=== PATIENT | female | born 1970 | race Caucasian/White ===

== ENCOUNTER → 2022-08-25 12:34 | Outpatient (CLI) | payer OTHER, SELFPAY ==
--- NOTE | ~2022-08-25 | XR_ITS ---
XR foot LT min 3V DATE: 08/25/2022 12:59 INDICATION: Left foot bunion TECHNIQUE: 4 weightbearing views COMPARISON: None FINDINGS: Pes planus. Mild posterior and mild to moderate plantar calcaneal enthesopathy without associated erosive change or periostitis. Hallux valgus and bunion deformity. Moderately prominent osteoarthritis at the first metatarsophalangeal joint No fracture or dislocation, periosteal reaction or bone destruction. IMPRESSION: Hallux valgus and bunion deformity Osteoarthritic the first metatarsophalangeal joint Plantar and posterior calcaneal enthesopathy Reviewed, dictated and finalized at location [facility]. REPAIRER
== END ==
PROVIDERS: PCP Podiatrist Foot & Ankle Surgery; Visit Provider Podiatrist Foot & Ankle Surgery
DX: M21.612 Bunion of left foot (principal); M20.12 Hallux valgus (acquired), left foot; M19.072 Primary osteoarthritis, left ankle and foot; M77.32 Calcaneal spur, left foot
CPT/HCPCS: 73630

== ENCOUNTER 2023-08-05 15:23 | Outpatient (CLI) | payer OTHER, SELFPAY ==
--- NOTE | 2023-08-05 15:39 | ECG_ITS ---
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
== END 2023-08-05 15:24 | disposition home or self-care (01) ==
PROVIDERS: PCP Physician Assistant Medical; Visit Provider Orthopaedic Surgery
DX: Z01.818 Encounter for other preprocedural examination (principal); Z87.891 Personal history of nicotine dependence; R93.1 Abnormal findings on diagnostic imaging of heart and coronary circulation
CPT/HCPCS: 93005

== ENCOUNTER 2023-08-17 00:15 | Day surgery (SDC) | payer OTHER, SELFPAY ==
[2023-08-04 12:58] VITALS: BMI 35.5
--- NOTE | 2023-08-04 13:03 | PC.NURSE ---
Report to the Outpatient Waiting Room, entrance under the green pavilion located off [facility], at time 6:00 on date 08/17/23. Planned Procedure Time: 7:30. Time changes happen often and if your time is changed the preop area will call you the afternoon before. - You and your visitor will be asked to self-screen and do not enter if you have any COVID symptoms. - A mask is optional within the hospital at this time. Patients may have clear liquids (water, carbonated beverages, clear teas, apple juice) until 3 hours prior to surgery with a maximum of 20 ounces. - No food from midnight until time of surgery Take the following medications with a SIP of water the morning of surgery: NONE DO NOT STOP ANY OF YOUR OTHER PRESCRIPTION MEDICATIONS PRIOR TO SURGERY ?EXCEPT THE FOLLOWING Medications to discontinue per physician: VITAMINS/SUPPLEMENTS Date to take last dose: 08/13/23 Please no make-up, nail prydeinig, hairspray, perfume, deodorant, or body powder the day of surgery. No jewelry (including any body piercings) or valuables the day of surgery, leave them at home. Please take a shower or bath the night before, or the morning of, surgery with an antibacterial soap. Wear comfortable, loose fitting clothing. - Jewelry must be removed prior to entering the operating room. Rings and piercings that are not removed may be cut off. - The hospital will not accept responsibility for valuables. - Please leave all valuables, including medications, at home the day of surgery. If you are going home after surgery, a licensed dedicated truck driver must drive you home. - NO public transportation without another adult if you receive anesthesia. - We recommend that an adult stay with you for 24 hours following discharge. - We also recommend that you do not drive, make important decision, drink alcoholic beverages, or take any drugs that were not prescribed by your health care provider for at least 24 hours after your discharge time. Follow any additional instructions given to you from your surgeon. If you or anyone in your household have experienced Covid symptoms in the past week, please notify your surgeon or the nurse liaison at the phone number below for possible testing. Telephone instructions given to SUPA SCHULZ and asked if any additional questions and then verbalized understanding. Patient advised to call surgeon office or pre surgery nurse liaison [phone] if any additional questions.
--- NOTE | 2023-08-12 14:02 | PM.IMHP ---
H&P: HPI History of Present Illness Date/Time: 08/12/23 14:02 Chief Complaint: Left foot pain and deformity Narrative: 53-year-old woman with several year history of left foot pain and progressive deformity. Pain with daily activity and weight bear. Worse with shoe wear. Has failed bracing, strapping and spacers. Has tried custom inserts and accommodative shoes. Review of Systems Constitutional: Constitutional: Denies fever(s) Eyes: Eyes: Denies blurry vision ENT: Reports Normal hearing present Cardiovascular: Cardiovascular: Denies chest pain and Denies dyspnea Respiratory: Respiratory: Denies dyspnea and Denies wheezing Gastrointestinal: Gastrointestinal: Denies abdominal pain Genitourinary: Genitourinary: Denies urinary urgency Musculoskeletal: Musculoskeletal: Reports as per HPI and Denies numbness Integumentary/Breasts: Skin/Breast: Denies changing lesions and Denies sores Neurologic: Reports Normal hearing present, Denies behavioral changes, Denies confusion, Denies numbness and Denies convulsions Psychiatric: Psychiatric: Denies behavioral changes, Denies confusion and Denies hallucinations Endocrine: Endocrine: Denies heat intolerance Hematologic/Lymphatic: Hematologic/Lymphatic: Denies easy bleeding Allergic/Immunologic: Allergic/Immunologic: Denies wheezing PMFSH Past Medical History Medical History (Updated 08/12/23 @ 14:05 by Mike Evans MD) Acquired hallux valgus of left foot Appendicitis Joseph's cyst of knee Cancer determined by ovarian biopsy Hammertoe of second toe of left foot Left knee pain 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 Surgical History Surgical History History of appendectomy 1991 Family History Family History Sibling Cervical cancer Other Arthritis Social History Social History Smoking packs per day: 1 Smoking cigarettes per day: 20.0 Years smoked: 20 Smoking pack-years: 20.00 Smoking status: Former smoker Tobacco type: cigarettes Second hand tobacco smoke exposure: Yes Smoking end date: 08/10/09 Alcohol intake: current Alcohol use details: 2/MONTH Substance use: never Substance use type: does not use Living arrangements: alone Occupation/Education: occupation Gender identity (if verbalized by the patient): Female Spiritual care concerns: No Meds Home Medications and Allergies Home Medications Medication Instructions Recorded Confirmed Type antiarthritic combination no.2 900 See Rx Instructions PO .qd 04/09/22 08/04/23 History mg tablet (glucosamine-chondroitin) ascorbic acid (vitamin C) 1,000 mg 1 g PO DAILY 04/09/22 08/04/23 History capsule mecobalamin (vitamin B12) 5,000 5,000 mcg PO .qd 04/09/22 08/04/23 History mcg disintegrating tablet Allergies Allergy/AdvReac Type Severity Reaction Status Date / Time Tetanus Vaccines and Toxoid Allergy Unknown ANAPHYLAXIS Verified 08/04/23 12:57 amoxicillin Allergy Rash Verified 08/04/23 12:57 Exam Const: General: healthy appearing; No in distress or confusion Orientation/consciousness: oriented to person, oriented to place, oriented to time and No confusion HENMT: Head: normal to inspection, normocephalic and atraumatic Eyes: Conjunctivae: conjunctivae normal Sclera: sclerae normal Neck: Neck: supple and nontender Resp: Effort & Inspection: normal respiratory effort and no audible wheezes Cardio: Rhythm: regular rhythm Skin: General skin exam: no rashes or lesions noted Neuro: General: oriented to person, oriented to place, oriented to time and No confusion Extrem: Right upper extremity: normal to inspection Left upper extremity: normal to inspection Right lower extremity: ankle Details: normal to inspection, normal ROM ( dorsiflexion 5?, plantar flexion
--- NOTE | 2023-08-14 15:31 | WPDANESEPPF ---
Anes - Initial Pre Proc Eval Procedure: Operation Date: 08/17/23 07:30 Proposed Procedures p Left Hallux Valgus Correction with First Metatarsal Osteotomy, Possible Phalangeal Osteotomy, Second Crossover Toe Correction - Mike Evans MD Date/Time: 08/14/23 15:31 Surgeon: Mike Evans MD Pre Op Diagnosis: Left Hallux Valgus ,2nd crossover toe Patient Data Age: 53 Gender: F Height: 1.68 m Weight: 99.8 kg Allergies Allergy/AdvReac Type Severity Reaction Status Date / Time Tetanus Vaccines and Toxoid Allergy Unknown ANAPHYLAXIS Verified 08/04/23 12:57 amoxicillin Allergy Rash Verified 08/04/23 12:57 Home Medications Medication Instructions Recorded Confirmed Type antiarthritic combination no.2 900 See Rx Instructions PO .qd 04/09/22 08/04/23 History mg tablet (glucosamine-chondroitin) ascorbic acid (vitamin C) 1,000 mg 1 g PO DAILY 04/09/22 08/04/23 History capsule mecobalamin (vitamin B12) 5,000 5,000 mcg PO .qd 04/09/22 08/04/23 History mcg disintegrating tablet Patient hx anesthesia problems: none Family hx anesthesia problems: none Results Review: All pre-operative results and documents have been reviewed as part of the pre-operative evaluation. 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 Surgical History Surgical History History of appendectomy 1991 Family History Family History Sibling Cervical cancer Other Arthritis Social History Social History Smoking packs per day: 1 Smoking cigarettes per day: 20.0 Years smoked: 20 Smoking pack-years: 20.00 Smoking status: Former smoker Tobacco type: cigarettes Second hand tobacco smoke exposure: Yes Smoking end date: 08/10/09 Alcohol intake: current Alcohol use details: 2/MONTH Substance use: never Substance use type: does not use Living arrangements: alone Occupation/Education: occupation Gender identity (if verbalized by the patient): Female Spiritual care concerns: No Anes - Eval Final PreProcedure Day of Procedure 08/14/23 15:31 Patient weight: normal Heart: regular rate and rhythm Lungs: clear to auscultation Neurological: alert and oriented Last oral intake: >/= 8 hours ASA classification: II Emergent: no Anesthetic plan: proceed Anesthesia type and monitoring: general LMA and standard monitoring Results Review: All pre-operative results and documents have been reviewed as part of the pre-operative evaluation. Informed Consent: The patient's anesthetic plan and its attendant risks and benefits were discussed with the patient/family/POA. Questions were solicited and answers provided to the satisfaction of the patient/family/POA.
[2023-08-17] VITALS (7 sets, daily range): BP systolic 105–150; BP diastolic 40–77; PULSE 46–65; RESP 10–16; TEMP 36–36.2; O2SAT 95–100
--- NOTE | ~2023-08-17 | XR_ITS ---
XR surgery orthopedic DATE: 08/17/2023 09:13 INDICATION: Left hallux valgus correction TECHNIQUE: 6 seconds total exposure time 0.4870 cGycm2 COMPARISON: None FINDINGS: Status post osteotomy at the distal first metatarsal bone and osteotomy and staple line at the proximal phalanx of the first digit. Status post surgical fusion at the interphalangeal joint of the second digit. IMPRESSION: Status post bunionectomy and fusion at second proximal interphalangeal joint Reviewed, dictated and finalized at Location [facility]. Reviewed, dictated and finalized at location B. R SANDER IMPRESSION: Status post bunionectomy and fusion at second proximal interphalang eal joint
[2023-08-17] MEDS: ACETAMINOPHEN 500 MG TABLET 1000 MG PO (06:56)
[2023-08-17] MEDS: LACTATED RINGERS 1,000 ML 30 ML IV CONT ×2 (07:03→09:05)
--- NOTE | 2023-08-17 07:09 | WPDHPUPDATE1 ---
History and Physical Update Update Date/Time: 08/17/23 07:09 History and Physical has been reviewed, including an updated exam of the patient. There are NO changes in the patient's condition. Risks, benefits, and alternatives have been discussed and questions answered. Patient agrees to proceed with procedure.
[2023-08-17] MEDS: KETOROLAC 15 MG/ML VIAL (*BKC) IV PUSH (07:17)
[2023-08-17] MEDS: ceFAZolin 2 GM/D5W 50 ML 2 GM/50 ML BAG IVPB (07:24)
[2023-08-17] MEDS: BUPivacaine HCL 0.5% 10 ML AMP 20 ML INFILTRATE (07:53)
--- NOTE | 2023-08-17 09:21 | W.PM.PROC2 ---
Procedure Note - Detailed Date of Procedure 08/17/23 Pre-op Diagnosis Left Hallux Valgus ,2nd crossover toe Post-op Diagnosis Same Procedure Performed Left hallux valgus correction with metatarsal and phalangeal osteotomy, hammertoe correction proximal interphalangeal arthrodesis Surgeon Mike Evans MD Paper Sales Manager [facility] assistant director Anesthesia General Indications 53-year-old woman with moderate hallux valgus deformity and 2nd hammertoe. Has failed conservative treatment strapping, bracing, inserts. Pain with daily activity and presents for operative treatment. Description of Procedure After informed consent was given, the operative extremity was marked in the preoperative holding area. The patient received intravenous antibiotics. The patient was brought to the operating room where they underwent a general anesthetic by the anesthesia team. The patient was positioned supine on the operating room table. A time-out was performed confirming the patient, site of the surgery, and the plan for surgery. The left lower extremity was then prepped and draped in the usual sterile surgical fashion using ChloraPrep skin solution. Foot and ankle were exsanguinated and a calf tourniquet was inflated to 225 mmHg pressure. A longitudinal incision was then made along the medial border of the 1st ray centered over the medial eminence with a #15 blade knife. Hemostasis was controlled with electric cautery. The dorsal and plantar sensory nerves were identified and retracted bluntly. A medial capsulotomy was then performed. This was reflected off the medial eminence. The joint was inspected for evaluation of degenerative changes. A lateral release was then performed through the joint with a #15 blade knife. The medial eminence was then resected with a sagittal saw in line with the medial border of the foot. Correction of the deformity was performed with a chevron-shaped osteotomy performed with sagittal saw from medial to lateral through the distal portion of the 1st metatarsal. The lateral portion of the bone cut was completed with an osteotome to protect the soft tissue. The capital fragment was then translated laterally and impacted on to the 1st metatarsal shaft. Lateral translation and impaction corrected both hallux valgus deformity and correction of the distal metatarsal articular angle. Temporary fixation was performed and alignment was verified with image intensification. Hallux valgus angle correction, intermetatarsal angle correction and distal metatarsal articular angle were verified. Fixation was achieved with 2.0 millimeter bioabsorbable pins. Two pins were utilized. Image intensification confirmed final alignment. Rotation was verified visually. The wound was then thoroughly irrigated with antibiotic solution. The capsule was repaired through a drill hole in the distal 1st metatarsal with 0 Vicryl interrupted suture. The dorsal limb of the capsule was repaired with 00 Vicryl interrupted suture. Subcutaneous tissue was repaired with 000 Monocryl interrupted suture and the skin approximated with 0000 nylon running suture. Local anesthetic with 0.5% Marcaine plain was injected in the soft tissue. Clinically and fluoroscopically there was still hallux valgus interphalangeus present. Proximal phalanx osteotomy was indicated. Medial incision made along the proximal phalanx with 15 blade knife. Hemostasis controlled electrocautery. Dissection down to the medial aspect of the proximal phalanx. Retractors placed. Sagittal saw used to make a medial closing wedge osteotomy transversely across the proximal phalanx. Image intensification confirmed placement of the osteotomy. Fixation was achieved with the Arthrex 10 millimeter x 9 millimeter staple. Good stability and fixation were noted. Image intensification confirmed final alignment of the osteotomy and placement of the hardware. Overall alignment of the 1st ray was verified. Wound was thoroughly irrigated with
[2023-08-17] MEDS: fentaNYL CITRATE INJ (*CRX) 100 MCG/2 ML VIAL 25 MCG IV PUSH (09:48)
[2023-08-17 10:33] LABS: HIV 1/2 Ab P24 Ag Result Negative (Negative); Hepatitis B Surface Anti Res Negative; Hepatitis C Virus Antibody Negative (Negative)
== END 2023-08-17 11:09 | disposition home or self-care (01) ==
PROVIDERS: PCP Physician Assistant Medical; Visit Provider Orthopaedic Surgery
PROC: (CPT 28299; principal; 2023-08-17 07:30)
DX: M20.12 Hallux valgus (acquired), left foot (principal); Z98.890 Other specified postprocedural states; Z87.891 Personal history of nicotine dependence; Z85.43 Personal history of malignant neoplasm of ovary; Z80.49 Family history of malignant neoplasm of other genital organs; Z11.4 Encounter for screening for human immunodeficiency virus [HIV]
CPT/HCPCS: 28299; 28285; 36415; 86703; 86706; 86803; 93005; 99199; A9270; C1713; G0432; J0690; J1100; J1885; J2250; J2405; J2704; J3010; J7120

== ENCOUNTER → 2023-08-21 15:14 | Outpatient (CLI) | payer OTHER, SELFPAY ==
--- NOTE | ~2023-08-21 | MM_ITS ---
EXAMINATION: MM screening joe BI w seth HISTORY: Screening TECHNIQUE: Craniocaudal and mediolateral oblique 3-D tomosynthesis images were obtained and synthetic 2-D images were generated. CAD analysis was submitted and interpreted. COMPARISON: No prior mammogram is available for comparison at this institution. BREAST PARENCHYMAL COMPOSITION: The breasts are almost entirely fatty. FINDINGS: There is a focal asymmetry in the lower inner quadrant of the left breast, middle third. Th ere is no mammographic evidence for malignancy in the right breast. IMPRESSION: 1. Focal left breast asymmetry, lower inner quadrant, middle third. 2. Additional mammographic views and possible breast ultrasound are recommended. BI-RADS Category 0: Incomplete: Needs additional imaging evaluation. Reviewed, dictated and finalized at location A. PSYCHIATRY IMPRESSION: 1. Focal left breast asymmetry, lower inner quadrant, middle third. 2. Additional mammographic views and possible breast ultrasound are recommended . BI-RADS Category 0: Incomplete: Needs additional imaging evaluation.
== END ==
PROVIDERS: PCP Physician Assistant Medical; Visit Provider Nurse Practitioner Obstetrics & Gynecology
DX: Z12.31 Encounter for screening mammogram for malignant neoplasm of breast (principal); R92.8 Other abnormal and inconclusive findings on diagnostic imaging of breast
CPT/HCPCS: 77063; 77067

== ENCOUNTER 2023-11-09 00:07 | Day surgery (SDC) | payer OTHER, SELFPAY ==
[2023-10-30 14:54] VITALS: BMI 35.5
--- NOTE | 2023-10-30 14:55 | PC.NURSE ---
Report to the Outpatient Waiting Room, entrance under the green pavilion located off [facility], at time 0600 on date 11/09/23. Planned Procedure Time: 0730. Time changes happen often and if your time is changed the preop area will call you the afternoon before. - You and your visitor will be asked to self-screen and do not enter if you have any COVID symptoms. - A mask is optional within the hospital at this time. Patients may have clear liquids (water, carbonated beverages, clear teas, apple juice) until 3 hours prior to surgery with a maximum of 20 ounces. - No food from midnight until time of surgery Take the following medications with a SIP of water the morning of surgery: NONE DO NOT STOP ANY OF YOUR OTHER PRESCRIPTION MEDICATIONS PRIOR TO SURGERY ?EXCEPT THE FOLLOWING Medications to discontinue per physician: VITAMINS/SUPPLEMENTS Date to take last dose: 11/05/23 Please no make-up, nail malawian, hairspray, perfume, deodorant, or body powder the day of surgery. No jewelry (including any body piercings) or valuables the day of surgery, leave them at home. Please take a shower or bath the night before, or the morning of, surgery with an antibacterial soap. Wear comfortable, loose fitting clothing. - Jewelry must be removed prior to entering the operating room. Rings and piercings that are not removed may be cut off. - The hospital will not accept responsibility for valuables. - Please leave all valuables, including medications, at home the day of surgery. If you are going home after surgery, a licensed cab driver must drive you home. - NO public transportation without another adult if you receive anesthesia. - We recommend that an adult stay with you for 24 hours following discharge. - We also recommend that you do not drive, make important decision, drink alcoholic beverages, or take any drugs that were not prescribed by your health care provider for at least 24 hours after your discharge time. Follow any additional instructions given to you from your surgeon. If you or anyone in your household have experienced Covid symptoms in the past week, please notify your surgeon or the nurse liaison at the phone number below for possible testing. Telephone instructions given to SUPA MAHER and asked if any additional questions and then verbalized understanding. Patient advised to call surgeon office or pre surgery nurse liaison [phone] if any additional questions.
--- NOTE | 2023-11-06 11:01 | PM.IMHP ---
H&P: HPI History of Present Illness Date/Time: 11/06/23 11:01 Chief Complaint: right foot pain with hallux deformity Narrative: 53-year-old with right hallux valgus deformity. Pain with activity and shoe wear. Unrelieved with conservative measures. Affects daily activity and routine. Review of Systems Constitutional: Constitutional: Denies fever(s) Eyes: Eyes: Denies blurry vision ENT: Reports Normal hearing present Cardiovascular: Cardiovascular: Denies chest pain and Denies dyspnea Respiratory: Respiratory: Denies dyspnea and Denies wheezing Gastrointestinal: Gastrointestinal: Denies abdominal pain Genitourinary: Genitourinary: Denies urinary urgency Musculoskeletal: Musculoskeletal: Reports as per HPI and Denies numbness Integumentary/Breasts: Skin/Breast: Denies changing lesions and Denies sores Neurologic: Reports Normal hearing present, Denies behavioral changes, Denies confusion, Denies numbness and Denies convulsions Psychiatric: Psychiatric: Denies behavioral changes, Denies confusion and Denies hallucinations Endocrine: Endocrine: Denies heat intolerance Hematologic/Lymphatic: Hematologic/Lymphatic: Denies easy bleeding Allergic/Immunologic: Allergic/Immunologic: Denies wheezing PMFSH Past Medical History Medical History Acquired hallux valgus of left foot Appendicitis Joseph's cyst of knee Cancer determined by ovarian biopsy Encounter for postoperative care Hallux valgus (acquired), right foot Hammertoe of second toe of left foot Left knee pain 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 Surgical History Surgical History History of appendectomy 1991 Family History Family History Sibling Cervical cancer Other Arthritis Social History Social History Smoking packs per day: 1 Smoking cigarettes per day: 20.0 Years smoked: 20 Smoking pack-years: 20.00 Smoking status: Former smoker Tobacco type: cigarettes Second hand tobacco smoke exposure: Yes Smoking end date: 08/10/09 Alcohol intake: current Alcohol use details: 2/MONTH Substance use: never Substance use type: does not use Living arrangements: alone Occupation/Education: occupation Gender identity (if verbalized by the patient): Female Spiritual care concerns: No Meds Home Medications and Allergies Home Medications Medication Instructions Recorded Confirmed Type antiarthritic combination no.2 900 See Rx Instructions PO .qd 04/09/22 10/30/23 History mg tablet (glucosamine-chondroitin) ascorbic acid (vitamin C) 1,000 mg 1 g PO DAILY 04/09/22 10/30/23 History capsule mecobalamin (vitamin B12) 5,000 5,000 mcg PO .qd 04/09/22 10/30/23 History mcg disintegrating tablet Allergies Allergy/AdvReac Type Severity Reaction Status Date / Time Tetanus Vaccines and Toxoid Allergy Unknown ANAPHYLAXIS Verified 11/04/23 16:17 amoxicillin Allergy Rash Verified 11/04/23 16:17 Exam Const: General: healthy appearing; No in distress or confusion Orientation/consciousness: oriented to person, oriented to place, oriented to time and No confusion HENMT: Head: normal to inspection, normocephalic and atraumatic Eyes: Conjunctivae: conjunctivae normal Sclera: sclerae normal Neck: Neck: supple and nontender Resp: Effort & Inspection: normal respiratory effort and no audible wheezes Cardio: Rhythm: regular rhythm Skin: General skin exam: no rashes or lesions noted Neuro: General: oriented to person, oriented to place, oriented to time and No confusion Extrem: Right upper extremity: normal to inspection Left upper extremity: normal to inspection Right lower extremity: ankle Details: normal to inspection, normal ROM ( dorsiflexion 5?, plantar flexion 45?, inv
[2023-11-09] VITALS (7 sets, daily range): BP systolic 109–144; BP diastolic 58–104; PULSE 47–61; RESP 10–16; TEMP 36.3–36.7; O2SAT 95–100
--- NOTE | ~2023-11-09 | XR_ITS ---
XR surgery orthopedic DATE: 11/09/2023 08:53 INDICATION: Orthopedic surgery TECHNIQUE: 3 spot C-arm images 4. Seconds total exposure time 0.3146 cGycm2 total DAP COMPARISON: None FINDINGS: Status post first metatarsal bunionectomy. Status post transverse osteotomy of the metaphys eal area of the proximal phalanx, with medial staple bridging the osteotomy site. IMPRESSION: First digit proximal phalanx osteotomy Status post bunionectomy at first metatarsal Reviewed, dictated and finalized at [facility]. Reviewed, dictated and finalized at [facility].
--- NOTE | 2023-11-09 06:27 | P.PNAN_ITS ---
Anes - Initial Pre Proc Eval Procedure: Operation Date: 11/09/23 07:30 Proposed Procedures p Right Hallux Valgus Correction with - Mike Evans MD s First Metatarsal Osteotomy and Phalangeal Osteotomy - Mike Evans MD Date/Time: 11/09/23 06:27 Surgeon: Mike Evans MD Pre Op Diagnosis: Rt Hallux Valgus Patient Data Age: 53 Gender: F Height: 1.68 m Weight: 99.9 kg Allergies Allergy/AdvReac Type Severity Reaction Status Date / Time Tetanus Vaccines and Toxoid Allergy Unknown ANAPHYLAXIS Verified 11/04/23 16:17 amoxicillin Allergy Rash Verified 11/04/23 16:17 Home Medications Medication Instructions Recorded Confirmed Type antiarthritic combination no.2 900 See Rx Instructions PO .qd 04/09/22 10/30/23 History mg tablet (glucosamine-chondroitin) ascorbic acid (vitamin C) 1,000 mg 1 g PO DAILY 04/09/22 10/30/23 History capsule mecobalamin (vitamin B12) 5,000 5,000 mcg PO .qd 04/09/22 10/30/23 History mcg disintegrating tablet Patient hx anesthesia problems: none Family hx anesthesia problems: none Results Review: All pre-operative results and documents have been reviewed as part of the pre- operative evaluation. 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 Surgical History Surgical History History of appendectomy 1991 Family History Family History Sibling Cervical cancer Other Arthritis Social History Social History Smoking packs per day: 1 Smoking cigarettes per day: 20.0 Years smoked: 20 Smoking pack-years: 20.00 Smoking status: Former smoker Tobacco type: cigarettes Second hand tobacco smoke exposure: Yes Smoking end date: 08/10/09 Alcohol intake: current Alcohol use details: 2/MONTH Substance use: never Substance use type: does not use Living arrangements: alone Occupation/Education: occupation Gender identity (if verbalized by the patient): Female Spiritual care concerns: No Anes - Eval Final PreProcedure Day of Procedure 11/09/23 06:27 Patient weight: obese Heart: regular rate and rhythm Lungs: clear to auscultation Airway: Mallampati scale class II Neurological: alert and oriented Last oral intake: >/= 8 hours ASA classification: II Emergent: no Anesthetic plan: proceed Anesthesia type and monitoring: general LMA and standard monitoring Results Review: All pre-operative results and documents have been reviewed as part of the pre- operative evaluation. Informed Consent: The patient's anesthetic plan and its attendant risks and benefits were discussed with the patient/family/POA. Questions were solicited and answers provided to the satisfaction of the patient/family/POA.
[2023-11-09] MEDS: KETOROLAC 15 MG/ML VIAL (*BKC) IV PUSH (06:45)
[2023-11-09] MEDS: ACETAMINOPHEN 500 MG TABLET 1000 MG PO (06:45)
[2023-11-09] MEDS: LACTATED RINGERS 1,000 ML 30 ML IV CONT ×2 (06:45→08:56)
--- NOTE | 2023-11-09 07:11 | WPDHPUPDATE1 ---
History and Physical Update Update Date/Time: 11/09/23 07:11 History and Physical has been reviewed, including an updated exam of the patient. There are NO changes in the patient's condition. Risks, benefits, and alternatives have been discussed and questions answered. Patient agrees to proceed with procedure.
[2023-11-09] MEDS: ceFAZolin 2 GM/D5W 50 ML 2 GM/50 ML BAG IVPB (07:41)
[2023-11-09] MEDS: BUPivacaine HCL 0.5% 10 ML AMP 30 ML INFILTRATE (07:57)
--- NOTE | 2023-11-09 09:09 | W.PM.PROC2 ---
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 Presents for operative treatment. Description of Procedure After informed consent was given, the operative extremity was marked in the preoperative holding area. The patient received intravenous antibiotics. The patient was brought to the operating room where they underwent a general anesthetic by the anesthesia team. The patient was positioned supine on the operating room table. A time-out was performed confirming the patient, site of the surgery, and the plan for surgery. The right lower extremity was then prepped and draped in the usual sterile surgical fashion using ChloraPrep skin solution. Foot and ankle were exsanguinated and a calf tourniquet was inflated to 225 mmHg pressure. A longitudinal incision was then made along the medial border of the 1st ray centered over the medial eminence with a #15 blade knife. The previous incision was utilized. Hemostasis was controlled with electric cautery. The dorsal and plantar sensory nerves were identified and retracted bluntly. A medial capsulotomy was then performed. This was reflected off the medial eminence. The joint was inspected for evaluation of degenerative changes. A lateral release was then performed through the joint with a #15 blade knife. The medial eminence was then resected with a sagittal saw in line with the medial border of the foot. Correction of the deformity was performed with a chevron-shaped osteotomy performed with sagittal saw from medial to lateral through the distal portion of the 1st metatarsal. The lateral portion of the bone cut was completed with an osteotome to protect the soft tissue. The capital fragment was then translated laterally and impacted on to the 1st metatarsal shaft. Lateral translation and impaction corrected both hallux valgus deformity and correction of the distal metatarsal articular angle. Temporary fixation was performed and alignment was verified with image intensification. Hallux valgus angle correction, intermetatarsal angle correction and distal metatarsal articular angle were verified. Fixation was achieved with 2.0 millimeter bioabsorbable pins. Two pins were utilized. Image intensification confirmed final alignment. Rotation was verified visually. The wound was then thoroughly irrigated with antibiotic solution. The capsule was repaired through a drill hole in the distal 1st metatarsal with 0 Vicryl interrupted suture. The dorsal limb of the capsule was repaired with 00 Vicryl interrupted suture. Subcutaneous tissue was repaired with 000 Monocryl interrupted suture and the skin approximated with 0000 nylon running suture. Local anesthetic with 0.5% Marcaine plain was injected in the soft tissue. Clinically and fluoroscopically there was still hallux valgus interphalangeus present. Proximal phalanx osteotomy was indicated. Medial incision made along the proximal phalanx with 15 blade knife. Hemostasis controlled electrocautery. Dissection down to the medial aspect of the proximal phalanx. Retractors placed. Sagittal saw used to make a medial closing wedge osteotomy transversely across the proximal phalanx. Image intensification confirmed placement of the osteotomy. Fixation was achieved with the Arthrex 10 millimeter x 9 millimeter staple. Good stability and fixation were noted. Image intensification confirmed final alignment of the osteotomy and placement of the hardware. Overall alignment of the 1st ray was verified. Wound was thoroughly irrigated with antibiotic solution. Soft tissue closed with 000 Monocryl interrupted suture. Skin approximately 4 O nylon running suture. Sterile dressing was then applied.
[2023-11-09] MEDS: fentaNYL CITRATE INJ (*CRX) 100 MCG/2 ML VIAL 25 MCG IV PUSH ×2 (09:14→09:26)
--- NOTE | 2023-11-09 11:03 | SUR.PHASEII ---
Patient has a post-op shoe from when she had left foot operated on. So this RN did not order her a new one for this surgery.
== END 2023-11-09 10:44 | disposition home or self-care (01) ==
PROVIDERS: PCP Physician Assistant Medical; Visit Provider Orthopaedic Surgery
PROC: (CPT 28299; principal; 2023-11-09 07:30)
PROC: (CPT 28750; 2023-11-09 07:30)
DX: M20.11 Hallux valgus (acquired), right foot (principal); E66.9 Obesity, unspecified; Z68.36 Body mass index [BMI] 36.0-36.9, adult; Z87.891 Personal history of nicotine dependence; Z85.43 Personal history of malignant neoplasm of ovary; Z80.49 Family history of malignant neoplasm of other genital organs
CPT/HCPCS: 28299; 99199; A9270; C1713; J0690; J1100; J1885; J2250; J2405; J2704; J3010; J7120

== ENCOUNTER → 2023-11-18 11:51 | Outpatient (REF) | payer OTHER, SELFPAY | LOC: ANHLAB 11:51 | PROVIDERS: PCP Physician Assistant Medical; Visit Provider Plastic Surgery | DX: L57.8 Other skin changes due to chronic exposure to nonionizing radiation (principal) | CPT/HCPCS: 88305 ==